=== PATIENT | male | born 1965 | race Caucasian/White ===

== ENCOUNTER 2018-01-04 15:18 | Emergency (ER) | payer OTHER ==
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
[2018-01-04] MEDS ORDERED: TDAP ADULT 0.5 ML INJ (BOOSTRIX) IM ONE (16:01)
[2018-01-04] MEDS ORDERED: LET GEL TOPICAL 1 EA SYR TP ONE (16:02)
[2018-01-04] MEDS ORDERED: CEPHALEXIN 500MG PREPACK#4 BTL TAKEHOME ONE (17:25)
[2018-01-04 18:10] VITALS: BP 133/78
== END 2018-01-04 18:10 | disposition home or self-care (01) ==
PROC: 0JQP0ZZ Repair Left Lower Leg Subcutaneous Tissue and Fascia, Open Approach (ICD-10-PCS; principal; 2018-01-04)
DX: S81.012A Laceration without foreign body, left knee, initial encounter (principal); V18.0XXA Pedal cycle driver injured in noncollision transport accident in nontraffic accident, initial encounter; Y93.55 Activity, bike riding

== ENCOUNTER 2018-01-05 21:58 | Emergency (ER) | payer OTHER ==
[2018-01-05] MEDS ORDERED: IOPAMIDOL (ISOVUE-300) 100 ML BTL ONE (22:34)
[2018-01-05 22:46] LABS: PLATELET COUNT 201 10^3/uL (150-400)
[2018-01-05 23:18] VITALS: BP 123/82
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
== END 2018-01-05 23:39 | disposition home or self-care (01) ==
DX: K59.00 Constipation, unspecified (principal)
CPT/HCPCS: 82435-PO; 82565-PO; 82947-PO; 84132-PO; 84295-PO; 84520-PO; 85014-PO; 96374; J2270; Q9967